=== PATIENT | male | born 1960 | race Caucasian/White ===

== ENCOUNTER 2022-10-16 12:34 | Day surgery (SDC) | payer SELFPAY ==
[~2022-10-16] VITALS: Ht 177.8 cm; Wt 86.0 kg
[2022-10-16] MEDS ORDERED: FLONASE NASAL S16 GM NS (14:05)
[2022-10-16] MEDS ORDERED: LIPITOR 10MG10 MG PO (14:05)
[2022-10-16] MEDS ORDERED: FLOMAX 0.40.4 MG/CAP PO (14:05)
[2022-10-16] MEDS ORDERED: ALL DAY ALLERGY10 M3 PO (14:07)
[2022-10-16] MEDS ORDERED: NEURONTIN100 MG/CAP PO (14:07)
[2022-10-16] MEDS ORDERED: NAPROSYN500 MG PO (14:08)
[2022-10-16 16:30] VITALS: BP 158/99; PULSE 79; TEMP 97.7
[2022-10-16 16:45] VITALS: BP 143/64; PULSE 64; TEMP 98
[2022-10-16] MEDS ORDERED: PYRIDIUM 100MG100 MG PO (17:03)
[2022-10-16] MEDS ORDERED: NORCO 325 MG-51 TAB PO (17:03)
[2022-10-16 17:15] VITALS: BP 152/100; PULSE 76; TEMP 97.7
[2022-10-16 17:18] VITALS: BP 160/82; PULSE 76; TEMP 97.3
--- NOTE | 2022-10-16 20:32 | NUR ---
[id number]: PT TO [facility] FROM PACU S/P CYSTO, R URETER STENT, STONE ABLATION A&O, NAD, C/O NEED TO GO TO MOVE BOWELS, WALKED TO BR WITH STEADY GAIT, ASKED TO RETURN TO ROOM AFTER AND NOTIFY RN, SO HE COULD BE SETTLED AND PLACED ON MONITOR (VSS ON RA). PT RETURNED AND INSISTED ON GETTING DRESSED, REQUESTED TO NOTIFY NURSE TO BE MONITORED AFTER, INSISTING ON GOING BACK TO BR, FIDGETY AND REFUSING TO LIE IN GURNEY- PT OTHERWISE STABLE AND WITHOUT COMPLAINT, AND APPROPRIATE/COOPERATIVE, REFUSING MONITORING UNTIL TIME FOR DC. PT ED ON POSSIBILITY URGE TO MOVE BOWELS MAY BE D/T STENT, AND ED ON BOWEL MGMT - VOICED UNDERSTANDING, BUT WON'T RETURN TO GURNEY TOLERATING WATER, DECLINING FOOD. FRIEND/RIDE HOME HAD BEEN CALLED PRIOR TO LEAVING PACU. RECEIVED REPORT AND ASSUMED CARE OF PT FROM IRINA PETIT UPON INITIAL ARRIVAL TO [facility]. PT HAS REMAINED A&O, NAD, VSS ON RA, TOLERATING PO, IS WITHOUT SIGNIFICANT COMPLAINT, WITH STEADY GAIT THRU OUT [facility] IV D/C'D. D/C INSTRUCTIONS, ANY FOLLOW UP REVIEWED AND HANDED TO PT. ALL QUESTIONS AND CONCERNS ADDRESSED TO PT SATISFACTION. TAKEN TO EXIT VIA W/C WITH ALL BELONGINGS AND PAPERWORK IN HAND, ASSISTED INTO PASSENGER SEAT OF POV. FRIEND TO DRIVE HOME.
== END 2022-10-16 17:36 | disposition home or self-care (01) ==
LOC: SDCO 12:34
DX: N20.1 Calculus of ureter (principal)
CPT/HCPCS: C1769; C2617; J0690; J1100; J1940; J2405; J2704; J3010; Q9967